=== PATIENT | female | born 1935 | race Caucasian/White ===

== ENCOUNTER 2022-03-27 12:35 | Inpatient (IN) ==
[2022-03-27] MEDS ORDERED: Naloxone 0.4 MG/ML INJ IVP PRN (17:50)
[2022-03-27] MEDS ORDERED: *HR* Dextrose 50 % in Water (Syg) 50 ML SYRINGE IVP PRN (18:54)
[2022-03-27] MEDS ORDERED: Dextrose 4 GM Chewable Tablets PO PRN ×2 (18:54)
[2022-03-27] MEDS ORDERED: D5% in Water 1,000 ML IVC PRN (18:54)
[2022-03-27] MEDS: Acetaminophen IV 1,000 MG/100 ML BAG IVPB SCH (20:49)
[2022-03-27] MEDS: Famotidine 20 MG TABLET PO SCH (20:52)
[2022-03-27] MEDS ORDERED: Insulin LISPRO 300 UNITS/3 ML VIAL SUBQ SCH (21:00)
[2022-03-28] MEDS: Acetaminophen IV 1,000 MG/100 ML BAG IVPB SCH ×2 (03:22→08:55)
[2022-03-28 04:46] LABS: Basophils % 0.2 %; Hematocrit 35.1 % (35.3-44.9); Hemoglobin 11.6 g/dL (11.5-15.4); Immature Granulocytes % 1.4 % (0-4); Lymphocytes # 0.8 K/mcL (0.6-4.6); Lymphocytes % 9.4 %; Mean Corpuscular Hemoglobin 33.4 pg (28.0-33.3); Mean Corpuscular Volume 101.2 fL (83.0-100.0); Mean Platelet Volume 9.7 fL (9.4-12.4); Monocytes # 1.1 K/mcL (0.0-1.3); Neutrophils # 6.4 K/mcL (1.6-8.9); Platelet Count 294 K/mcL (140-400); Red Blood Count 3.47 M/mcL (3.82-4.97); Red Cell Distribution Width 13.5 % (11.5-14.5); White Blood Count 8.4 K/mcL (4.3-11.1)
[2022-03-28 05:02] LABS: Calcium 9.6 mg/dL (8.6-10.3); Potassium 4.1 mEq/L (3.5-5.1)
[2022-03-28] MEDS ORDERED: Insulin LISPRO 300 UNITS/3 ML VIAL SUBQ SCH ×2 (07:30→12:00)
[2022-03-28] MEDS: Metoprolol XL (24 HR) Succ 25 MG TAB.ER.24H PO SCH (09:00)
[2022-03-28] MEDS: Famotidine 20 MG TABLET PO SCH (09:00)
[2022-03-28] MEDS: calcitrioL 0.25 MCG CAPSULE PO SCH (09:00)
[2022-03-28] MEDS: Isosorbide MONOnitrate (24 HR) 30 MG TAB.ER.24H PO SCH (09:01)
[2022-03-28] MEDS: Aspirin Enteric Coated 81 MG Tablet PO SCH (09:01)
[2022-03-28] MEDS ORDERED: 0.9 % Sodium Chloride 1,000 ML IVC SCH (10:15)
[2022-03-28] MEDS: Insulin LISPRO 300 UNITS/3 ML VIAL SUBQ SCH ×2 (16:43→21:27)
[2022-03-28] MEDS ORDERED: QUEtiapine Fumarate 25 MG TABLET PO SCH (21:00)
[2022-03-29 05:28] LABS: Basophils # 0.1 K/mcL (0.0-0.2); Basophils % 0.7 %; Eosinophils # 0.2 K/mcL (0.0-0.6); Hematocrit 33.3 % (35.3-44.9); Immature Granulocytes % 1.2 % (0-4); Lymphocytes # 1.6 K/mcL (0.6-4.6); Lymphocytes % 20.5 %; Mean Corpuscular Hemoglobin 32.8 pg (28.0-33.3); Mean Corpuscular Volume 99.4 fL (83.0-100.0); Mean Platelet Volume 9.9 fL (9.4-12.4); Monocytes # 0.8 K/mcL (0.0-1.3); Neutrophils # 4.9 K/mcL (1.6-8.9); Platelet Count 300 K/mcL (140-400); Red Blood Count 3.35 M/mcL (3.82-4.97); Red Cell Distribution Width 13.7 % (11.5-14.5); Segmented Neutrophils % 64.6 %; White Blood Count 7.6 K/mcL (4.3-11.1)
[2022-03-29 05:44] LABS: Calcium 9.4 mg/dL (8.6-10.3)
[2022-03-29] MEDS: Isosorbide MONOnitrate (24 HR) 30 MG TAB.ER.24H PO SCH (07:30)
[2022-03-29] MEDS: calcitrioL 0.25 MCG CAPSULE PO SCH (07:30)
[2022-03-29] MEDS: Aspirin Enteric Coated 81 MG Tablet PO SCH (07:30)
[2022-03-29] MEDS: Metoprolol XL (24 HR) Succ 25 MG TAB.ER.24H PO SCH (07:31)
[2022-03-29] MEDS: Insulin LISPRO 300 UNITS/3 ML VIAL SUBQ SCH ×4 (07:31→20:33)
[2022-03-29] MEDS: Famotidine 20 MG TABLET PO SCH (07:59)
[2022-03-29] MEDS: Acetaminophen 325 MG TABLET PO PRN ×2 (08:00→19:51)
[2022-03-29] MEDS: *HR* HYDROcodone/Acet 5/325 mg TABLET PO PRN (12:36)
[2022-03-29] MEDS: *HR* Heparin 5,000 UNIT/ML VIAL SQ SCH (17:28)
[2022-03-29] MEDS ORDERED: QUEtiapine Fumarate 25 MG TABLET PO SCH (21:00)
[2022-03-30] MEDS: *HR* Heparin 5,000 UNIT/ML VIAL SQ SCH ×2 (05:46→17:57)
[2022-03-30 06:21] LABS: Basophils % 0.5 %; Eosinophils # 0.2 K/mcL (0.0-0.6); Eosinophils % 2.9 %; Hematocrit 35.5 % (35.3-44.9); Hemoglobin 11.7 g/dL (11.5-15.4); Immature Granulocytes % 1.2 % (0-4); Lymphocytes # 1.4 K/mcL (0.6-4.6); Lymphocytes % 18.1 %; Mean Corpuscular Hemoglobin 32.9 pg (28.0-33.3); Mean Corpuscular Volume 99.7 fL (83.0-100.0); Mean Platelet Volume 10.3 fL (9.4-12.4); Monocytes # 0.9 K/mcL (0.0-1.3); Monocytes % 12.2 %; Platelet Count 251 K/mcL (140-400); Red Blood Count 3.56 M/mcL (3.82-4.97); Red Cell Distribution Width 13.8 % (11.5-14.5); Segmented Neutrophils % 65.1 %; White Blood Count 7.7 K/mcL (4.3-11.1)
[2022-03-30 06:27] LABS: Calcium 9.6 mg/dL (8.6-10.3); Potassium 4.2 mEq/L (3.5-5.1)
[2022-03-30] MEDS: Aspirin Enteric Coated 81 MG Tablet PO SCH (08:18)
[2022-03-30] MEDS: calcitrioL 0.25 MCG CAPSULE PO SCH (08:18)
[2022-03-30] MEDS: Metoprolol XL (24 HR) Succ 25 MG TAB.ER.24H PO SCH (08:20)
[2022-03-30] MEDS: Famotidine 20 MG TABLET PO SCH (08:20)
[2022-03-30] MEDS: Isosorbide MONOnitrate (24 HR) 30 MG TAB.ER.24H PO SCH (08:20)
[2022-03-30] MEDS: Insulin LISPRO 300 UNITS/3 ML VIAL SUBQ SCH ×4 (08:32→20:33)
[2022-03-30] MEDS ORDERED: amLODIPine 5 MG TABLET PO SCH (09:00)
[2022-03-30] MEDS: Acetaminophen 325 MG TABLET PO PRN (12:22)
[2022-03-30 16:01] LABS: Bacteria,Urine Few per hpf (None-Few); Bilirubin,Urine Negative (Negative); Blood,Urine Negative (Negative); Clarity,Urine Clear (Clear); Color,Urine Light-Yellow (Yellow); Glucose,Urine (UA) Normal (Normal); Ketones,Urine Negative (Negative); Leukocyte Esterase,Urine Large (Negative); Mucus,Urine Few per lpf (None-Few); Nitrite,Urine Positive (Negative); PH,Urine 5.5 pH Units (5.0-8.0); Protein,Urine Trace mg/dL (Neg-Trace); Squamous Epithelial Cell,Urine Few per hpf (None-Few); Urobilinogen,Urine Normal (Normal); WBC,Urine 30-50 per hpf (0-3)
[2022-03-30] MEDS: cefTRIAXone 1,000 MG in 0.9 % Sodium Chloride 10 ML IVP SCH (17:57)
[2022-03-30] MEDS: QUEtiapine Fumarate 25 MG TABLET PO SCH (20:37)
[2022-03-31 04:20] LABS: Basophils % 0.4 %; Eosinophils # 0.3 K/mcL (0.0-0.6); Eosinophils % 4.1 %; Hematocrit 35.4 % (35.3-44.9); Hemoglobin 11.8 g/dL (11.5-15.4); Immature Granulocytes % 1.3 % (0-4); Lymphocytes # 1.3 K/mcL (0.6-4.6); Lymphocytes % 18.6 %; Mean Corpuscular HGB Conc 33.3 g/dL (31.6-35.5); Mean Corpuscular Hemoglobin 33.3 pg (28.0-33.3); Mean Platelet Volume 9.7 fL (9.4-12.4); Monocytes # 0.7 K/mcL (0.0-1.3); Monocytes % 9.6 %; Neutrophils # 4.5 K/mcL (1.6-8.9); Platelet Count 285 K/mcL (140-400); Red Blood Count 3.54 M/mcL (3.82-4.97); Red Cell Distribution Width 13.6 % (11.5-14.5); White Blood Count 6.8 K/mcL (4.3-11.1)
[2022-03-31 04:39] LABS: Calcium 10.2 mg/dL (8.6-10.3); Potassium 4.4 mEq/L (3.5-5.1)
[2022-03-31] MEDS: *HR* Heparin 5,000 UNIT/ML VIAL SQ SCH ×2 (05:04→17:21)
[2022-03-31] MEDS: Insulin LISPRO 300 UNITS/3 ML VIAL SUBQ SCH ×4 (08:13→20:14)
[2022-03-31] MEDS: Aspirin Enteric Coated 81 MG Tablet PO SCH (08:17)
[2022-03-31] MEDS: calcitrioL 0.25 MCG CAPSULE PO SCH (08:17)
[2022-03-31] MEDS: amLODIPine 5 MG TABLET PO SCH (08:17)
[2022-03-31] MEDS: cefTRIAXone 1,000 MG in 0.9 % Sodium Chloride 10 ML IVP SCH (08:17)
[2022-03-31] MEDS: Isosorbide MONOnitrate (24 HR) 30 MG TAB.ER.24H PO SCH (08:18)
[2022-03-31] MEDS: Metoprolol XL (24 HR) Succ 25 MG TAB.ER.24H PO SCH (08:18)
[2022-03-31] MEDS: Famotidine 20 MG TABLET PO SCH (08:18)
[2022-03-31 08:30] LABS: Magnesium 1.7 mg/dL (1.6-2.6)
[2022-03-31] MEDS ORDERED: QUEtiapine Fumarate 25 MG TABLET PO ONE (13:00)
[2022-03-31] MEDS: Acetaminophen 325 MG TABLET PO PRN (17:21)
[2022-03-31] MEDS: QUEtiapine Fumarate 25 MG TABLET PO SCH (20:24)
[2022-04-01] MEDS: *HR* Heparin 5,000 UNIT/ML VIAL SQ SCH ×2 (05:23→17:40)
[2022-04-01 07:36] LABS: Calcium 9.5 mg/dL (8.6-10.3); Magnesium 1.7 mg/dL (1.6-2.6); Phosphorous 3.5 mg/dL (2.7-4.5); Potassium 4.9 mEq/L (3.5-5.1)
[2022-04-01] MEDS: cefTRIAXone 1,000 MG in 0.9 % Sodium Chloride 10 ML IVP SCH (10:04)
[2022-04-01] MEDS: Insulin LISPRO 300 UNITS/3 ML VIAL SUBQ SCH ×3 (10:04→17:40)
[2022-04-01] MEDS: Aspirin Enteric Coated 81 MG Tablet PO SCH (10:05)
[2022-04-01] MEDS: amLODIPine 5 MG TABLET PO SCH (10:05)
[2022-04-01] MEDS: Famotidine 20 MG TABLET PO SCH (10:05)
[2022-04-01] MEDS: Metoprolol XL (24 HR) Succ 25 MG TAB.ER.24H PO SCH (10:05)
[2022-04-01] MEDS: Isosorbide MONOnitrate (24 HR) 30 MG TAB.ER.24H PO SCH (10:06)
[2022-04-01] MEDS: calcitrioL 0.25 MCG CAPSULE PO SCH (10:06)
[2022-04-01] MEDS: *HR* HYDROcodone/Acet 5/325 mg TABLET PO PRN (10:14)
[2022-04-01] MEDS: 0.9 % Sodium Chloride 1,000 ML IVC SCH (13:52)
[2022-04-01 14:57] LABS: Bacteria,Urine Few per hpf (None-Few); Bilirubin,Urine Negative (Negative); Blood,Urine Negative (Negative); Clarity,Urine Clear (Clear); Color,Urine Light-Yellow (Yellow); Glucose,Urine (UA) 150 mg/dL (Normal); Ketones,Urine Negative (Negative); Leukocyte Esterase,Urine Small (Negative); Mucus,Urine Few per lpf (None-Few); Nitrite,Urine Negative (Negative); PH,Urine 5.5 pH Units (5.0-8.0); Protein,Urine Trace mg/dL (Neg-Trace); Sodium, Urine 73.7 mEq/L; Squamous Epithelial Cell,Urine Few per hpf (None-Few); Urobilinogen,Urine Normal (Normal)
[2022-04-01] MEDS: QUEtiapine Fumarate 25 MG TABLET PO SCH (21:01)
[2022-04-02] MEDS: 0.9 % Sodium Chloride 1,000 ML IVC SCH ×2 (00:18→11:00)
[2022-04-02] MEDS: Insulin LISPRO 300 UNITS/3 ML VIAL SUBQ SCH ×3 (04:33→12:18)
[2022-04-02] MEDS: *HR* Heparin 5,000 UNIT/ML VIAL SQ SCH (05:32)
[2022-04-02 06:32] LABS: Calcium 9.8 mg/dL (8.6-10.3); Potassium 4.3 mEq/L (3.5-5.1)
[2022-04-02] MEDS: cefTRIAXone 1,000 MG in 0.9 % Sodium Chloride 10 ML IVP SCH (08:58)
[2022-04-02] MEDS: Aspirin Enteric Coated 81 MG Tablet PO SCH (08:59)
[2022-04-02] MEDS: Metoprolol XL (24 HR) Succ 25 MG TAB.ER.24H PO SCH (08:59)
[2022-04-02] MEDS: calcitrioL 0.25 MCG CAPSULE PO SCH (08:59)
[2022-04-02] MEDS: Isosorbide MONOnitrate (24 HR) 30 MG TAB.ER.24H PO SCH (09:00)
[2022-04-02] MEDS: amLODIPine 5 MG TABLET PO SCH (09:00)
[2022-04-02 09:59] LABS: Influenza A PCR Negative (Negative); Influenza B PCR Negative (Negative); Resp. Syncytial Virus PCR Negative (Negative)
[2022-04-02 10:28] LABS: SARS-CoV-2 by PCR (In House) Negative (Negative)
[2022-04-02] MEDS: *HR* HYDROcodone/Acet 5/325 mg TABLET PO PRN (10:47)
[2022-04-02] MEDS ORDERED: Moderna Covid-19 Vaccine 100MCG/0.5mL IM ONE (10:58)
[2022-04-02 11:57] VITALS: BP 126/67; PULSE 72; TEMP 97.7; O2SAT 98
== END 2022-04-02 16:06 | DRG 551 ==
LOC: 3ANU → SUATTDRO 16:30
PROVIDERS: ADMIT Student in an Organized Health Care Education/Training Program; ATTEND Internal Medicine